=== PATIENT | male | born 1955 | race African-American/Black ===

== ENCOUNTER 2019-10-04 07:40 | Day surgery (SDC) | payer OTHER ==
[2019-10-03 12:43] VITALS: BMI 28.1
[2019-10-04] MEDS ORDERED: oxyCODONE HCL 5 MG TABLET PO PRN (10:41)
[2019-10-04] MEDS ORDERED: IBUPROFEN 800 MG/8 ML IJ IVPB PRN (10:41)
[2019-10-04] MEDS ORDERED: ONDANSETRON 4 MG/2 ML VIAL IVPUSH PRN (10:41)
[2019-10-04] MEDS ORDERED: BUPIVACAINE HCL/PF 0.5% (5 MG/ML) 30 ML VIAL IJ ONE ×3 (10:42→11:46)
[2019-10-04] MEDS ORDERED: LACTATED RINGERS SOLUTION 1,000 ML IV SCH (10:45)
[2019-10-04] MEDS ORDERED: ceFAZolin SODIUM 1 GM VIAL ONE (11:09)
[2019-10-04] MEDS ORDERED: ROCURONIUM BROMIDE 50 MG/5 ML SYRINGE ONE (11:09)
[2019-10-04] MEDS ORDERED: MIDAZOLAM HCL 2 MG/2 ML SINGLE DOSE VIAL ONE (11:09)
[2019-10-04] MEDS ORDERED: LIDOCAINE HCL/PF 2% SDV 5ML VIAL ONE (11:09)
[2019-10-04] MEDS ORDERED: PROPOFOL 20 ML ONE (11:09)
--- NOTE | 2019-10-04 11:14 | HP ---
History & Physical Update - History History: No Change - Physical Physical: No Change - Assessment Assessment: No Change - Plan Plan: No Change (H & P ON 09/26/19)
[2019-10-04] MEDS ORDERED: ceFAZolin 2 GRAM PREMIX BAG IVPB ONE (11:37)
[2019-10-04] MEDS ORDERED: DEXAMETHASONE SOD PHOSPHATE 4 MG/1 ML VIAL ONE (12:07)
[2019-10-04] MEDS ORDERED: ePHEDrine SULFATE 50 MG/1 ML AMPULE ONE (12:22)
[2019-10-04] MEDS ORDERED: GLYCOPYRROLATE 0.2 MG/1 ML VIAL ONE (12:48)
[2019-10-04] MEDS ORDERED: NEOSTIGMINE METHYLSULFATE 0.5 MG/ML - 10 ML MDV ONE (12:48)
--- NOTE | 2019-10-04 13:26 | OP ---
Operative Note - Note: Operative Date: 10/04/19 Pre-Operative Diagnosis: Right inguinal hernia Operation: Robotic RIH repair with mesh Findings: Direct RIH Implants: 15 X 10 cm Progrip mesh Post-Operative Diagnosis: Same as Pre-op Surgeon: Keaton Gregory Store Host: Fatmata Scott Anesthesiologist/[employer] OFFICER: Shreya Burns Anesthesia: General Estimated Blood Loss (mls): 3 Operative Report Dictated: Yes
--- NOTE | 2019-10-04 13:44 | SURG ---
[facility] [employer] Note [employer]: Fatmata Scott PA-C Date of Service: 10/04/19 Diagnosis: right inguinal hernia Procedure: right inguinal hernia repair with mesh I was present for the entirety of the operative procedure. For further detail, please refer to operative report. Visit type - Case Type Case Type: Scheduled - Emergency Emergency Visit: No - New patient This patient is new to me today: Yes Date on this admission: 10/04/19
[2019-10-04 15:03] VITALS: TEMP 98
--- NOTE | 2019-10-04 15:06 | OP ---
DATE OF OPERATION: 10/04/2019 PROCEDURE: Robotic-assisted laparoscopic right inguinal hernia repair. PREOPERATIVE DIAGNOSIS: Right inguinal hernia. POSTOPERATIVE DIAGNOSIS: Right inguinal hernia. SURGEON: Keaton Gregory MD ASPHALT RAKER: KAMAR Friedman ANESTHESIA: General endotracheal. FINDINGS AND PROCEDURE: This is a 63-year-old male who presents with right inguinal pain associated with back pain and bloating sensation. On physical exam, patient has a reducible right inguinal bulge, which is about [address] scan of the abdomen and pelvis showed a fat-containing right inguinal hernia. The patient was advised elective inguinal hernia repair, and consent was obtained after discussing the risks, benefits, and alternatives of the procedure. Patient was brought to the operating room and placed in supine position. General endotracheal anesthesia was administered. The abdomen was prepped and draped in the usual sterile fashion. Using 0.5% Marcaine, local anesthesia was administered to the proposed incision site. The peritoneal cavity was entered using the Veress needle technique via an 8-mm supraumbilical incision. Pneumoperitoneum was established. An 8-mm port was then inserted followed by insertion of the 3D laparoscope. The peritoneal cavity was carefully inspected and was noted to be free of inadvertent injury. Patient was then placed in steep Trendelenburg position. Two 8-mm ports were inserted 8 cm away from the middle port under direct vision. The target organ was set, and the robotic arms were docked. The fenestrated bipolar forceps was inserted at the left-sided port, and the EndoWrist Yeimi connected to monopolar cautery was inserted at the right-sided port. The undersigned then scrubbed out to commence the console part of the procedure. The parietal peritoneum at the level of the inferior superior iliac spine was scored to create the preperitoneal pocket. It covered from the level of the inferior superior iliac spine and medially towards the umbilical medial umbilical ligament. Dissection was then carried toward the pelvis combining a blunt and sharp dissection with the fenestrated bipolar and the EndoWrist Yeimi. Dissection was carried inferiorly the iliopsoas muscle was visualized inferomedially towards the underside of the symphysis pubis visualizing the bladder and the iliac vessels. Direct hernia was identified containing preperitoneal fat. This was carefully freed of its fat contents. The indirect hernia was about 4 cm in diameter. The peritoneal reflection was dissected superiorly at least about 7 cm away from the internal ring. This was done by careful of the parietal peritoneum from the spermatic cord. After adequate dissection was achieved, the 15 x 10-cm ProGrip mesh was deployed to cover the direct hernia defect medially and Hesselbach's angle as well as the femoral canal and laterally the internal ring. The deployment of the mesh was deemed satisfactory. The preperitoneal pocket was closed with a continuous V-Lock 2-0 absorbable suture. This completed the hernia repair. The instruments were removed, and the robotic arms were undocked. The pneumoperitoneum was evacuated. The wounds were closed with subcuticular Biosyn 4-0 sutures reinforced with Dermabond. Patient was successfully extubated and transferred to the post anesthesia care unit in satisfactory condition. Estimated blood loss was about 3 mL. Wound class clean. The patient received 2 g of Ancef prior to the start of the procedure. Neema [id number]
[2019-10-04 16:28] VITALS: BP 145/83; PULSE 103
== END 2019-10-04 16:25 | disposition home or self-care (01) ==
LOC: JASU-SURG 07:40
PROVIDERS: ATTEND Surgery
PROC: 8E0W4CZ Robotic Assisted Procedure of Trunk Region, Percutaneous Endoscopic Approach (ICD-10-PCS; 2019-10-04)
PROC: 0YU54JZ Supplement Right Inguinal Region with Synthetic Substitute, Percutaneous Endoscopic Approach (ICD-10-PCS; principal; 2019-10-04 10:00)
DX: K40.90 Unilateral inguinal hernia, without obstruction or gangrene, not specified as recurrent (principal); I10 Essential (primary) hypertension; E11.9 Type 2 diabetes mellitus without complications; Z79.84 Long term (current) use of oral hypoglycemic drugs
CPT/HCPCS: 49650; S2900; 82962; 94760